=== PATIENT | male | born 1985 ===

== ENCOUNTER 2021-01-26 20:25 | Emergency (ER) | payer MEDICAID ==
[~2021-01-26] VITALS: Ht 175.3 cm; Wt 70.0 kg
[2021-01-26 20:41] VITALS: BP 187/109
== END 2021-01-26 22:55 | disposition left against medical advice (07) ==
LOC: ER 20:27
DX: Z00.8 Encounter for other general examination (principal); Z53.21 Procedure and treatment not carried out due to patient leaving prior to being seen by health care provider